=== PATIENT | male | born 1990 | race Caucasian/White ===

== ENCOUNTER → 2017-02-23 | Emergency (ER) | payer BC ==
[~2017-02-23] VITALS: Ht 182.9 cm; Wt 71.0 kg
[~2017-02-23] MED LIST: AMOX500T2 PO; BACI3.5O6 OS; BUPR150T9 PO; ERYTHROMYCIN 0.5% OPHTHALMIC OINTMENT 1 GM TUBE OD ONE; EYE WASH 120 ML BTL OD ONE; HYDR-3754 PO; IBUP-1772 PO; QUET150T PO; TETRACAINE 0.5% OPHTHALMIC SOLUTION 4 ML BTL OD ONE; [UNRECOGNIZED DRUG - CODE] OD
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
[2017-02-23 16:46] VITALS: BP 117/74
== END | disposition home or self-care (01) ==
LOC: ED 15:42
DX: T15.01XA Foreign body in cornea, right eye, initial encounter (principal)
CPT/HCPCS: 65220; 99283